=== PATIENT | male | born 1960 | race Caucasian/White ===

== ENCOUNTER 2017-07-05 00:41 | Inpatient (IN) | payer BC, OTHER ==
[~2017-07-05] VITALS: Ht 185.4 cm; Wt 89.7 kg
[2017-07-05] VITALS (14 sets, daily range): BP systolic 85–132; BP diastolic 56–88
--- NOTE | ~2017-07-05 | HC ---
[facility] [place] [address] CONSULTATION Name: GRAHAM COOK Room #: 247-P [facility] IN M.R.#: [id number] Admission: 07/05/17 Attend Phys: Kaushik Melendez, Discharge: 07/07/17 Date of : 60 Report #: [id number] THIS REPORT FOR: //name// CC: Isaias MIGUEL physician/PCP Jakub Melendez REASON FOR CONSULTATION: Chest pain. HISTORY OF PRESENT ILLNESS: The patient is a 57-year-old with a history of known coronary artery disease status post CABG and multiple stents, who follows with his primary panelbeater, Dr. Sylvester, at [facility]. Per the notes and the patient, the patient had been drinking yesterday most of the day and was watching the boxing match. He was also drinking heavily. The patient had some sort of a fall and developed some chest pain. He reports the pain was in the chest and radiated to his back. In the Emergency Room, he had an EKG, which I reviewed, which showed sinus rhythm with no ischemic changes. The patient expressed some suicidal ideation in the Emergency Room and the ER decided that they needed to keep him and he became combative and they had to restrain the patient and he required sedation. The patient currently denies any chest pain or chest tightness. He says he has a followup appointment with Dr. Sylvester in the next couple of months. He denies any shortness of breath. He denies PND or orthopnea. He denies presyncope or syncope. REVIEW OF SYSTEMS: GENERAL: No fevers or chills. HEENT: No sore throat. GASTROINTESTINAL: The patient had some nausea and vomiting yesterday. GENITOURINARY: No dysuria. MUSCULOSKELETAL: No myalgias, no arthralgias. He had recent back surgery. ENDOCRINE: No heat or cold intolerance. NEUROLOGIC: No focal weakness, but has had some prior strokes. PAST MEDICAL HISTORY: 1. Coronary artery disease status post CABG and prior stents. 2. Hypertension. 3. Migraines. 4. Prior CVA. 5. Spinal stenosis status post recent back surgery. 6. Bipolar disorder. 7. Per the chart, EF is around 40%-45%. SOCIAL HISTORY: Quit smoking after his last heart attack. He does drink occasional alcohol. FAMILY HISTORY: Noncontributory. [facility] [address] [place] [address] CONSULTATION Name: GRAHAM COOK Room #: 247-P [facility] IN ..#: [id number] Admission: 07/05/17 Attend Phys: Kaushik Melendez DO Discharge: 07/07/17 Date of : 60 Report #: [id number] ALLERGIES: INCLUDE PENICILLIN. MEDICATIONS: At home include aspirin, Plavix and Haldol. Here, he received some flumazenil, Haldol and Geodon. PHYSICAL EXAMINATION: VITAL SIGNS: The patient was afebrile, heart rate 86, respiration 16, blood pressure 104/92, sats of 99%. GENERAL: He is in no acute distress. He is alert and cooperative at this time. HEENT: Oropharynx is clear. NECK: Supple. No thyromegaly or carotid bruits. HEART: Regular rate and rhythm with normal S1 and S2. No S3, S4. He does not have elevated jugular venous pressure and is lying flat. LUNGS: Clear to auscultation bilaterally. ABDOMEN: Soft, nontender, nondistended with no hepatosplenomegaly. EXTREMITIES: There is no clubbing, cyanosis or edema. NEUROLOGICAL: Cranial nerves 2-12 are intact. LABORATORY DATA: White count 10.6, hemoglobin 14, platelets 216. Coags: INR is 1.0. Chemistry: Sodium 137, potassium 4.2, chloride 101, bicarbonate 22, BUN 9, creatinine 1.0, glucose 99, mag 2.0. AST 18, ALT 23. Alkaline phos 43. Troponin is negative x 2. His EKG, as described above, showed normal sinus rhythm with no ischemic changes. Chest x-ray shows normal cardiac silhouette. His alcohol level was elevated at 201. He is positive for benzos and marijuana. His proBNP was 84. ASSESSMENT AND PLAN: In summary, the patient is a 57-year-old presenting with some chest pain. It is unclear if this was related to his fall or alcohol ingestion. There is no ischemia on his EKG and his troponins thus far are normal. As such, I recommend that we reinitiate his home medications. I recommended that if troponins are negative, he can proceed with outpatient stress testing. If he has recurrence of any symptoms, perhaps an inpatient stress test maybe considered. I thank you for allowing me to participate in his care. <ELECTRONICALLY SIGNED> By: Jasbir Iglesias MD 07/09/17 1105 [id number] 1023 Jasbir Iglesias MD /nt
--- NOTE | ~2017-07-05 | EKG ---
[place] [address] [facility] [employer] [place] [address] ELECTROCARDIOGRAM REPORT Name: GRAHAM COOK Room #: 247-P ADM IN M.R.#: [id number] Admission: 07/05/17 Attend Phys: Kaushik Melendez DO Discharge: Date of : 60 Report #: [id number] THIS REPORT FOR: //name// [facility] ED Test Date: 2017-07-05 Test Time: 00:48:20 Pat Name: GRAHAM COOK Department: Room: 247 Gender: M [employer] Official: AMARILIS : 1960 Requested By: Jadiel Orr Order Number: [id number] MD: Camden Hairston Measurements Intervals [place] Rate: 104 P: 43 NE: 153 QRS: -23 QRSD: 90 T: -37 QT: 378 QTc: 498 Interpretive Statements Sinus tachycardia Nonspecific ST and T wave abnormality Inferior infarct, age indeterminate Compared to ECG 09/08/2015 07:47:44 Nonspecific change in the ST and T-wave segments Electronically Signed On 07-07-2017 9:23:57 CDT by Camden Hairston [email or web address] <ELECTRONICALLY SIGNED> By: Camden Hairston MD, [facility] 07/07/17 0923 0048 0048 Camden Hairston MD, [facility] /EPI
[~2017-07-05 00:41] MED LIST: ALEVE220 MG PO; ALTACE10 M1; ALTACE5 M1 PO; ASPIRIN325 PO; ATORVASTATIN CA40 MG PO; Alprazolam PO; BUDEPRION SR150 MG PO; BUPROPION HCL200 MG PO; BUPROPION XL150 MG PO; CRESTOR10 MG PO; CRESTOR20 MG PO; CRESTOR40 MG PO; CRESTOR5 MG; DOCUSATE SODIU100 MG PO; ERYTHROMYCIN60 ML TP; FLECTOR PATCH1 EA TOP; HYDROCODONE-AP1 EAC6 PO; IBUPROFEN 200200 M1 PO; LAMICTAL 25 MG25 M1; LAMICTAL100 MG; LAMOTRIGINE200 MG PO; LEVAQUIN 500 M500 M2 PO; LEXAPRO20 MG PO; MEDROLDOSEPACK PO; METOPROLOL SUC100 MG PO; METOPROLOL SUCC25 M1; MULTI VITAMIN1 EACH PO; NITROGLYCERIN0.4 MG SUBLING; ONDANSETRON HCL4 M2 PO; OXYCODONE HCL20 M1 PO; PANTOPRAZOLE SO40 M1 PO; PERCOCET 10-321 EACH PO; PLAVIX 75 MG TA75 M1 PO; PROTONIX40 M2 PO; Ramipril PO; TEGRETOL200 MG PO; TOPROL XL100 MG PO; TYLENOL325 MG PO; WELLBUTRIN XL150 M1; XANAX 0.5 MG0.5 M1 PO
[2017-07-05 01:09] LABS: ABSOLUTE NEUTROPHILS 5.2 thou/uL (1.4-8.2); BASOPHILS 0.4 % (0.0-2.0); EOSINOPHILS 1.3 % (0.0-3.0); HEMATOCRIT 41.6 % (42.0-52.0); HEMOGLOBIN 14.4 gm/dL (14.0-18.0); LYMPHOCYTES 38.6 % (24.0-44.0); MANUAL DIFF NO; MCH 30.7 pg (26.0-34.0); MCHC 34.5 g/dL (28.0-37.0); MCV 88.8 fL (80.0-100.0); MONOCYTES 10.8 % (1.0-8.0); PLATELET COUNT 216 thou/uL (150-400); POLYS 48.9 % (36.0-66.0); RBC 4.69 mil/uL (4.50-6.00); WBC 10.6 thou/uL (4.0-11.0)
[2017-07-05 01:13] LABS: ANION GAP 14 mmol/L (7-16); BUN 9 mg/dL (7-18); CALCIUM 8.9 mg/dL (8.5-10.1); CHLORIDE 101 mmol/L (98-107); CO2 22 mmol/L (21-32); GLUCOSE 99 mg/dL (74-106); POTASSIUM 4.2 mmol/L (3.5-5.1); SODIUM 137 mmol/L (136-145)
[2017-07-05 01:20] LABS: APTT 25.8 Seconds (24.5-32.8)
[2017-07-05 01:21] LABS: ALBUMIN 3.9 g/dL (3.4-5.0); ALKALINE PHOSPHATASE 43 U/L (46-116); SGOT 18 U/L (15-37); SGPT 23 U/L (30-65); TOTAL BILIRUBIN 0.4 mg/dL (<0.1-1.0); TOTAL PROTEIN 7.6 g/dL (6.4-8.2); TROPONIN-I < 0.04 ng/mL (<0.04-0.07)
[2017-07-05 02:28] LABS: URINE BILIRUBIN NEGATIVE (Negative); URINE BLOOD NEGATIVE (Negative); URINE COLOR YELLOW; URINE GLUCOSE-RANDOM* NEGATIVE (Negative); URINE KETONES NEGATIVE (Negative); URINE LEUKOCYTES-REFLEX NEGATIVE (Negative); URINE PROTEIN (DIPSTICK) NEGATIVE (Negative); URINE SPECIFIC GRAVITY <= 1.005 (1.003-1.035); URINE UROBILINOGEN 0.2 E.U./dl (0.2-1.0)
[2017-07-05 02:36] LABS: AMP/METHAMP Negative (Negative); BARBITURATES Negative (Negative); BENZODIAZEPINES POSITIVE (Negative); COCAINE Negative (Negative); METHADONE Negative (Negative); OPIATES Negative (Negative); PCP Negative (Negative); THC POSITIVE (Negative)
[2017-07-05 07:08] LABS: CHOLESTEROL 209 mg/dL (<200); HDL CHOLESTEROL 36 mg/dL (>40); LDL CHOLESTEROL 145 mg/dL (<100); TC:HDL 5.8 Ratio (Not establshd); TRIGLYCERIDE 142 mg/dL (<150); VLDL 28 mg/dL (<40)
[2017-07-05 09:45] LABS: PHOSPHORUS 3.4 mg/dL (2.5-4.9)
[2017-07-05] MEDS ORDERED: DEPAKOTE ER500 MG PO (10:00)
[2017-07-05 10:13] LABS: FOLIC ACID 18.5 ng/mL (8.6-58.9)
[2017-07-05 15:10] LABS: FREE T4 0.86 ng/dL (0.82-1.77)
[2017-07-06] VITALS (25 sets, daily range): BP systolic 91–140; BP diastolic 56–109
[2017-07-07] VITALS (17 sets, daily range): BP systolic 101–146; BP diastolic 59–99
[2017-07-07 04:35] LABS: CALCIUM 8.2 mg/dL (8.5-10.1); CREATININE 1.1 mg/dL (0.7-1.3); MAGNESIUM 1.9 mg/dL (1.8-2.4); PHOSPHORUS 3.3 mg/dL (2.5-4.9); POTASSIUM 3.7 mmol/L (3.5-5.1)
== END 2017-07-07 17:11 | DRG 897 ==
LOC: ER 00:41 → ICU 02:55 → EROBS 02:55 → ICU 03:54
PROVIDERS: Emergency Medicine; Family Medicine; Nurse Practitioner Acute Care
DX: F10.120 Alcohol abuse with intoxication, uncomplicated (principal); R45.851 Suicidal ideations; I25.110 Atherosclerotic heart disease of native coronary artery with unstable angina pectoris; F31.9 Bipolar disorder, unspecified; I10 Essential (primary) hypertension; E78.00 Pure hypercholesterolemia, unspecified; G43.909 Migraine, unspecified, not intractable, without status migrainosus; Y90.7 Blood alcohol level of 200-239 mg/100 ml; S52.124A Nondisplaced fracture of head of right radius, initial encounter for closed fracture; X58.XXXA Exposure to other specified factors, initial encounter; Z95.1 Presence of aortocoronary bypass graft; Z95.5 Presence of coronary angioplasty implant and graft; Z86.010 Personal history of colon polyps; Z85.71 Personal history of Hodgkin lymphoma; Z79.899 Other long term (current) drug therapy; Z79.82 Long term (current) use of aspirin; Z88.0 Allergy status to penicillin; Z87.891 Personal history of nicotine dependence; Y93.89 Activity, other specified; Y92.89 Other specified places as the place of occurrence of the external cause; Y99.8 Other external cause status
CPT/HCPCS: 10203